=== PATIENT | male | born 1955 | race Caucasian/White ===

== ENCOUNTER 2017-10-25 05:33 | Inpatient (IN) | payer OTHER ==
[~2017-10-25] VITALS: Ht 165.1 cm; Wt 102.8 kg
[~2017-10-25 05:33] MED LIST: FLUTI110I INH; LOSA50TA PO; PANT40TA3 PO
[2017-10-25] MEDS ORDERED: ACETAMINOPHEN 1000 MG/100 ML 100 ML IV SCH (06:00)
[2017-10-25] MEDS ORDERED: ONDANSETRON HCL 4 MG/2 ML VIAL IV PUSH SCH (06:00)
[2017-10-25] MEDS ORDERED: APREPITANT 40 MG CAP PO SCH (06:00)
[2017-10-25] MEDS ORDERED: metroNIDAZOLE 500 MG INJ 100 ML IV SCH (06:00)
[2017-10-25] MEDS ORDERED: POVIDONE IODINE 5% (ANTISEPSIS KIT) 4 APPLICATIONS EACH NARE PRN (06:00)
[2017-10-25] MEDS ORDERED: VANCOMYCIN 1,500 MG/NS 500 ML (for 85-99 kg) IV SCH ×2 (06:00)
[2017-10-25] MEDS ORDERED: METOPROLOL TARTRATE 25 MG TAB PO PRN (06:00)
[2017-10-25] MEDS ORDERED: CHLORHEXIDINE GLUCONATE 2 % 1 PACK (2 CLOTHS) TOPICAL PRN (06:00)
[2017-10-25] MEDS ORDERED: SODIUM CHLORID 0.9% 500 ML IV PRN (06:00)
[2017-10-25] MEDS ORDERED: LACTATED RINGER'S 1000 ML IV PRN (06:00)
[2017-10-25] MEDS ORDERED: HYDROmorphone HCL PF 2 MG/ML VIAL ONE (07:17)
[2017-10-25] MEDS ORDERED: ALBUMIN 25% INJ 100 ML IV ONE (07:18)
[2017-10-25] MEDS ORDERED: ONDANSETRON ODT 4 MG TAB ONE (07:29)
[2017-10-25] MEDS ORDERED: BUPIVACAINE/EPINEPHRINE 0.5% PF 30 ML VIAL ONE (08:11)
[2017-10-25] MEDS ORDERED: diphenhydrAMINE HCL ELIXIR 12.5 MG/5 ML CUP PO PRN (10:45)
[2017-10-25] MEDS ORDERED: SODIUM CHLORIDE 0.9% FLUSH 10 ML FLUSH IV FLUSH PRN (10:45)
[2017-10-25] MEDS ORDERED: NALOXONE HCL 0.4 MG/ML AMP IV PUSH PRN (10:45)
[2017-10-25] MEDS ORDERED: Post-op Orders (for Pharmacy) OTHER ONE (10:45)
[2017-10-25] MEDS ORDERED: diphenhydrAMINE HCL 50 MG/ML VIAL IV PUSH PRN (10:45)
[2017-10-25] MEDS ORDERED: ENALAPRILAT 1.25 MG/ML VIAL IV PUSH PRN (10:45)
[2017-10-25] MEDS ORDERED: MORPHINE SULFATE 30 MG/30 ML PCA IV SCH (10:45)
[2017-10-25] MEDS ORDERED: ACETAMINOPHEN 325MG/HYDROcodone 7.5MG/15ML UDC PO PRN ×2 (10:45)
[2017-10-25] MEDS ORDERED: DO NOT ADM ANY ANTICOAGULANT DRUGS PRN (10:56)
[2017-10-25] MEDS ORDERED: MIDAZOLAM HCL 2 MG/2 ML VIAL ONE (11:01)
[2017-10-25] MEDS ORDERED: *morphine SULFATE 4 MG/ML PERIprocedure ONLY ONE ×4 (11:03→11:34)
[2017-10-25] MEDS ORDERED: *RESP: ALBUTEROL 2.5 MG/3 ML NEB (PRN) PERIprocedural Use ONLY NEB ONE (11:20)
[2017-10-25] MEDS: METOCLOPRAMIDE HCL 10 MG/2 ML VIAL IV PUSH SCH ×2 (11:56→17:51)
[2017-10-25] MEDS: RESP: ALBUTEROL 2.5 MG/3 ML NEB (SCH) INH ×4 (11:56→23:41)
[2017-10-25] MEDS: D5-1/2 NS + KCL 20 MEQ INJ 1,000 ML IV SCH ×2 (11:56→21:35)
[2017-10-25] MEDS ORDERED: GLYCOPYRROLATE 1 MG/5 ML SYRINGE IV PUSH ONE (12:00)
[2017-10-25] MEDS ORDERED: ROCURONIUM INJ 50 MG/5 ML SYRINGE IV PUSH ONE (12:00)
[2017-10-25] MEDS: ACETAMINOPHEN 1000 MG/100 ML 100 ML IV SCH ×2 (12:00→17:51)
[2017-10-25] MEDS ORDERED: ONDANSETRON ODT 4 MG TAB PO PRN (12:00)
[2017-10-25] MEDS ORDERED: NEOSTIGMINE 5 MG/5 ML SYRINGE IV PUSH ONE (12:00)
[2017-10-25] MEDS ORDERED: DEXAMETHASONE SOD PHOS 4 MG/ML VIAL IV ONE (12:00)
[2017-10-25] MEDS ORDERED: PROPOFOL 200 MG/20 ML AMP IV ONE (12:00)
[2017-10-25] MEDS: PCA - TOTAL MG MORPHINE DELIVERED PER SHIFT SCH ×2 (14:00→21:36)
[2017-10-25] MEDS: ENOXAPARIN SODIUM 40 MG/0.4 ML SYRINGE SQ SCH (14:58)
[2017-10-25] MEDS: metroNIDAZOLE 500 MG INJ 100 ML IV SCH (16:13)
[2017-10-25 17:15] VITALS: BP 121/65; PULSE 74; RESP 16; TEMP 97.5; O2SAT 93
[2017-10-25 20:00] VITALS: BP 109/56; PULSE 81; RESP 19; TEMP 97.6; O2SAT 97
[2017-10-25] MEDS: VANCOMYCIN INJ 1,000 MG in SODIUM CHLOR 0.9% 250 ML INJ 250 ML IV SCH (21:37)
[2017-10-25] MEDS: SODIUM CHLORIDE 0.9% FLUSH 10 ML FLUSH IV FLUSH SCH (21:41)
[2017-10-26] VITALS: BP 115/56; PULSE 105; RESP 19; TEMP 97.8; O2SAT 90
[2017-10-26] MEDS: METOCLOPRAMIDE HCL 10 MG/2 ML VIAL IV PUSH SCH ×2 (00:44→05:24)
[2017-10-26] MEDS: metroNIDAZOLE 500 MG INJ 100 ML IV SCH ×2 (00:44→08:35)
[2017-10-26] MEDS: ACETAMINOPHEN 1000 MG/100 ML 100 ML IV SCH ×2 (00:44→05:24)
[2017-10-26] MEDS: D5-1/2 NS + KCL 20 MEQ INJ 1,000 ML IV SCH ×2 (04:00→11:15)
[2017-10-26] MEDS: RESP: ALBUTEROL 2.5 MG/3 ML NEB (SCH) INH ×4 (04:09→16:15)
[2017-10-26] MEDS: PCA - TOTAL MG MORPHINE DELIVERED PER SHIFT SCH (05:32)
[2017-10-26 07:16] LABS: AUTOMATED NEUTROPHIL # 7.5 TH/MM3 (1.8-7.7); BASOPHIL % 0.1 % (0.0-2.0); HEMATOCRIT 43.8 % (39.0-51.0); HEMOGLOBIN 15.2 GM/DL (13.0-17.0); LYMPH % 6.8 % (9.0-44.0); LYMPHOCYTE # 0.6 TH/MM3 (1.0-4.8); MEAN CELL VOLUME 87.2 FL (80.0-100.0); MEAN CORPUSCULAR HEMOGLOBIN 30.3 PG (27.0-34.0); MEAN CORPUSCULAR HGB CONC 34.7 % (32.0-36.0); MEAN PLATELET VOLUME 9.2 FL (7.0-11.0); MONO % 9.5 % (0.0-8.0); MONOCYTE # 0.9 TH/MM3 (0-0.9); NEUT % 83.6 % (16.0-70.0); PLATELET COUNT 164 TH/MM3 (150-450); RED BLOOD COUNT 5.03 MIL/MM3 (4.50-5.90); RED CELL DISTRIBUTION WIDTH 13.3 % (11.6-17.2)
[2017-10-26 07:41] LABS: BICARBONATE 26.3 MEQ/L (21.0-32.0); CALCIUM 8.3 MG/DL (8.5-10.1); CREATININE 0.84 MG/DL (0.60-1.30); MAGNESIUM 2.1 MG/DL (1.5-2.5)
[2017-10-26 08:00] VITALS: BP 116/61; PULSE 60; RESP 18; TEMP 98.5; O2SAT 93
[2017-10-26 08:06] VITALS: O2SAT 96
[2017-10-26] MEDS: VANCOMYCIN INJ 1,000 MG in SODIUM CHLOR 0.9% 250 ML INJ 250 ML IV SCH (08:35)
[2017-10-26] MEDS: SODIUM CHLORIDE 0.9% FLUSH 10 ML FLUSH IV FLUSH SCH (08:36)
[2017-10-26] MEDS ORDERED: PANTOPRAZOLE SOD 40 MG DELAYED RELEASE TAB PO SCH (09:00)
[2017-10-26] MEDS ORDERED: METOCLOPRAMIDE HCL 10 MG/2 ML VIAL IV PUSH PRN (10:45)
--- NOTE | 2017-10-26 10:46 | HHI.PR ---
Subjective Subjective Notes Pain well controlled. Tolerating PO fluids. C/O of some gas Objective Vitals/I&O Vital Signs Date Time Temp Pulse Resp B/P (MAP) Pulse Ox O2 Delivery O2 Flow Rate FiO2 10/26/17 10:01 16 10/26/17 08:06 96 21 10/26/17 08:00 98.5 60 116/61 (79) 10/25/17 16:09 Nasal Cannula 3 Labs Laboratory Tests Test 10/26/17 06:05 White Blood Count 9.0 Red Blood Count 5.03 Hemoglobin 15.2 Hematocrit 43.8 Mean Corpuscular Volume 87.2 Mean Corpuscular Hemoglobin 30.3 Mean Corpuscular Hemoglobin Concent 34.7 Red Cell Distribution Width 13.3 Platelet Count 164 Mean Platelet Volume 9.2 Neutrophils (%) (Auto) 83.6 Lymphocytes (%) (Auto) 6.8 Monocytes (%) (Auto) 9.5 Eosinophils (%) (Auto) 0.0 Basophils (%) (Auto) 0.1 Neutrophils # (Auto) 7.5 Lymphocytes # (Auto) 0.6 Monocytes # (Auto) 0.9 Eosinophils # (Auto) 0.0 Basophils # (Auto) 0.0 CBC Comment DIFF FINAL Differential Comment Blood Urea Nitrogen 9 Creatinine 0.84 Random Glucose 141 Calcium Level 8.3 Magnesium Level 2.1 Sodium Level 138 Potassium Level 3.7 Chloride Level 104 Carbon Dioxide Level 26.3 Anion Gap 8 Estimat Glomerular Filtration Rate 93 Cardiovascular: Regular Lungs: Clear Abdomen: Post-op tenderness Extremities: Perfused Wound Wound : Wound Location: Abdomen Appearance: Clean & Dry A/P Assessment and Plan 62yo M POD#1 laparoscopic RNY -D/C DIRECTOR OF APPLICATION DEVELOPMENT, transition to oral pain control -Continue with frequent ambulation -Continue to increase fluids as tolerated The exam, history, and the medical decision-making described in the above note were completed with the assistance of the mid-level provider. I reviewed and agree with the findings presented. I attest that I had a [id number] encounter with the patient on the same day, and personally performed and documented my assessment and findings in the medical record. Discharge Planning Progressing well, possibly D/C home this evening Dulce Nevarez Oct 26, 2017 10:46 Peterson Romero MD Oct 28, 2017 18:39
[2017-10-26 12:00] VITALS: BP 124/67; PULSE 61; RESP 18; TEMP 97.8; O2SAT 93
[2017-10-26] MEDS ORDERED: SIMETHICONE 125 MG CHEWABLE TAB PO ONE (12:00)
[2017-10-26 16:00] VITALS: BP 132/66; PULSE 69; RESP 17; TEMP 98.1; O2SAT 93
[2017-10-26] MEDS: ENOXAPARIN SODIUM 40 MG/0.4 ML SYRINGE SQ SCH (16:36)
[2017-10-26] MEDS ORDERED: FLUTICASONE PROPIONATE 110 MCG/ACT 12 GM INHALER INH SCH (21:00)
--- NOTE | 2017-10-28 18:48 | MP ---
cc: Peterson Romero MD, Joel L MD DATE OF OPERATION: 10/28/2017 PREOPERATIVE DIAGNOSIS: Severe obesity with a BMI of 38, complicated by essential hypertension. POSTOPERATIVE DIAGNOSES: Severe obesity with a BMI of 38, complicated by essential hypertension. PROCEDURE PERFORMED: Laparoscopic Christy-en-Y gastric bypass 100 cm Christy limb antegastric antecolic. SURGEON: Peterson Romero MD. ANESTHESIA: General endotracheal anesthesia. ESTIMATED BLOOD LOSS: 10 mL FINDINGS: Fatty liver. SPECIMENS: None. COMPLICATIONS: None. OPERATION: The patient was brought to the operating room and placed on the operating table in supine position, bilateral sequential inflation device placed on lower extremities, general anesthesia instituted, antibiotics initiated. The abdomen was prepped and draped sterilely. A point 18-cm distal to the xiphoid in the midline anesthetized with 0.25% Marcaine with epinephrine. The skin incision was made, a 5-mm Optiview port placed under direct vision and pneumoperitoneum was created. Under direct vision a 5-mm left upper quadrant, 12-mm left upper quadrant, 12-mm right upper quadrant and 5-mm right upper quadrant ports were placed. Prior to placement of all ports, the skin and peritoneum were anesthetized with 0.25% Marcaine with epinephrine. The patient's omentum was lifted into the upper abdomen. It was split down the middle to create a path for the Christy limb. The ligament of Treitz was identified, a point 40 cm distal identified. The small bowel was divided in this region using an [place] Flex stapler vascular load reinforced with Seam Guard. The distal segment was brought up for a distance of 100 cm, enterotomy created in this region, enterotomy in the biliopancreatic limb and a [id number] stapled jejunojejunostomy created in the usual manner. The mesenteric defect at the jejunojejunostomy was closed with 2-0 Surgidac suture in a running manner. The patient was placed in reverse Trendelenburg position with the left side up. The Glenis-Flex retractor was placed. The left lobe of the liver was retracted. The angle of His was taken down bluntly, a point 5 cm distal to the GE junction along the lesser curve identified, the lesser sac entered using blunt dissection. The stomach was partitioned horizontally using an [place]-Flex stapler blue load, an additional firing taken directed towards the angle of His to completely divide the stomach. A gastrotomy created in the new stomach, enterotomy in the Christy limb and gastrojejunostomy created, stomal opening of 2 cm. An 18-Japanese orogastric tube was placed across the anastomosis, the defect then closed in two layers of running 2-0 Vicryl. Prior to placement of the second layer, methylene blue instilled through the orogastric tube. There was no evidence of extravasation. Evicel was then placed over the gastrojejunostomy, jejunojejunostomy and all staple lines. The operative field inspected and hemostasis was present. The CO2 was released, all ports were removed. All skin incisions were closed with 4-0 Monocryl. The abdominal wall was cleaned and a sterile dressing placed. The patient was awakened and taken to the recovery room. MD MARK Maldonado/ , 06:36 PM , 06:46 PM
== END 2017-10-26 19:52 | disposition home or self-care (01) | DRG 621 ==
LOC: HSDI 05:33 → EDSTATUS 09:00 → N07B 17:08
PROVIDERS: ADMIT Surgery; ATTEND Surgery
PROC: 0DQV0ZZ Repair Mesentery, Open Approach (ICD-10-PCS; 2017-10-25)
PROC: 0D164ZA Bypass Stomach to Jejunum, Percutaneous Endoscopic Approach (ICD-10-PCS; principal; 2017-10-25 08:30)
DX: E66.01 Morbid (severe) obesity due to excess calories (principal); K76.0 Fatty (change of) liver, not elsewhere classified; I10 Essential (primary) hypertension; K21.9 Gastro-esophageal reflux disease without esophagitis; G47.33 Obstructive sleep apnea (adult) (pediatric); J45.909 Unspecified asthma, uncomplicated; Z68.38 Body mass index [BMI] 38.0-38.9, adult; Z87.891 Personal history of nicotine dependence
CPT/HCPCS: 80048; 83735; 85025; 94150; 94640; 94664; J0131; J1100; J1170; J1650; J2250; J2270; J2710; J2765; J3010; J3370; J3480; J7040; J7050; J7120; J7613; J8501; P9047